=== PATIENT | female | born 1980 | race Hispanic/Latino ===

== ENCOUNTER 2016-11-03 06:22 | Emergency (ER) | payer OTHER ==
[~2016-11-03] VITALS: Ht 160 cm; Wt 90.9 kg
[~2016-11-03 06:22] MED LIST: CITA40TA13 PO; DOXY100T2 PO; FLUT16SP; GABA-502; HYDR50CA PO; METO-301 PO; NAPR500T PO; OMEP20CA11; OXYB5TAB10; PROP10TA8; RANI150T11; TOPI-59
--- NOTE | 2016-11-03 06:30 | ED.REPORT ---
HPI-Back Pain Under 40 Date of Service Nov 03, 2016 ED Provider: Jolanta Caruso MD 36 year old female presents to the ER complaining of acute on chronic low back pain, worsening yesterday. She reports history of similar elicitation of pain with over-exertion. Pain is exacerbated with movement of any kind. Patient denies dysuria, and history of narcotic and IV drug abuse. Symptoms have not been treated with any home medications. In the past she has treated these symptoms with THC with no relief. Nursing Notes Stated Complaint: BACK PAIN Nursing Notes Reviewed: Yes Allergies: Coded Allergies: hydrocodone (Unverified Adverse Reaction, Severe, Nausea, 02/24/16) Scheduled Citalopram (Citalopram) 40 Mg Tablet 40 MG PO DAILY Dexamethasone (Dexamethasone) 4 Mg Tablet 10 MG PO DAILY 10mg on 11/04 and 11/05 Doxycycline Hyclate (Doxycycline Hyclate) 100 Mg Tablet 100 MG PO BID Scheduled PRN Hydroxyzine Pamoate (Vistaril) 50 Mg Capsule 50 MG PO HS PRN PRN For Insomnia Metoclopramide (Reglan) 10 Mg Tablet 10 MG PO TID PRN PRN Headache Naproxen (Naprosyn) 500 Mg Tablet 500 MG PO BID PRN PRN For Pain Naproxen (Naproxen) 500 Mg Tab 500 MG PO BID PRN PRN For Pain oxyCODONE-Acetaminophen 5-325 mg (oxyCODONE-Acetaminophen 5-325 mg) 1 Each Tablet 1-2 TAB PO Q6H PRN PRN For Pain Miscellaneous Medications Fluticasone Propionate (Fluticasone Propionate Nasal) [address] [place].susp Gabapentin (Gabapentin) 300 Mg Capsule Omeprazole (Omeprazole) 20 Mg Capsule. Oxybutynin Chloride (Oxybutynin Chloride) 5 Mg Tablet Propranolol HCl (Propranolol HCl) 10 Mg Tablet Ranitidine (Zantac) 150 Mg Tablet Topiramate (Topiramate) 25 Mg Tablet General Time Seen by MD: 06:29 Chief Complaint Back pain Hx Obtained From: Patient Arrived By: Walk-in Sudden in Onset?: No Onset Occurred: Yesterday Symptom Duration: Since onset Caused by: Spontaneous/no mechanism, Aggravated old injury Location: : Spinal lumbar area: Spinal sacral area: Spinal thoracic area Quality: Painful Severity: Current: Moderate Severity: Maximum: Moderate Associated with: Denies: Dysuria Pertinent Negative: Pt denies other symptoms Related History: Reports: Chronic back pain Similar Sx Previous: Yes Past Medical History Past Medical History Notes: Neurologist: Dr. Turcios Past Medical History Chronic back problems Migraine headaches Anxiety Reports: GERD, Mental illness Past Surgical History Reports: Tubal ligation Smoking History Current Some Day Smoker Social History Alcohol Use: Denies alcohol use Drug Use: THC Occupation lives with kids 6, from 16,14, 13,10 ,9, 8, Ambulatory Status Independent Review of Systems GI: Denies: Abdominal pain, Nausea, Vomiting Female: Denies: Musculoskeletal: Reports: Back pain, Lumbar pain, Denies: Extremity pain, Joint pain, Neck pain, Thoracic pain Complete sys rev & neg: except as marked. Physical Exam Initial Vital Signs Vital Signs (First) Date Time Temp Pulse Resp B/P Pulse Ox O2 Delivery O2 Flow Rate FiO2 11/03/16 06:33 36.2 90 22 106/66 97 Room Air Initial VS: Reviewed Head / Eyes: Atraumatic, Normocephalic Neck: Supple, Non-tender, Full range of motion Abdomen / GI: Soft, Non-tender, No guarding, No rebound, No distention Extremities: Vascular intact, Neuro intact, No swelling, No tenderness Skin: Warm, Dry, No cyanosis General/Constitutional: Awake, Alert, Well developed, Well nourished Distress / Hydration: Positive: Distress moderate Behavior: Positive: Tearful Appearance / Presentation: Positive: In pain, Uncomfortable Back: Atraumatic, No CVA tenderness Points to midline tenderness from sacrum to T8. Radicular pain on Right side into the thigh and hamstring. Significant paraspinal muscle spasm, bilaterally. Neurologic: Oriented X3, Speech NL, No motor deficits Psychiatric: Not suicidal, Not homicidal Dramatic affective behavior. Breathing through pain as though she is having contractions, though confirms that she has a tubal ligation. Re-Eval/Medical Decision Re-Evaluation/Progress #1: Time of Eval: 07:16 Re-Evaluation/Progress Note: She states that the pain is not improved after IM Toradol. However she is less dramatic, now appropriate. Visibly in pain, cryinig and quivering. Now able to walk. Re-Evaluation/Progress #2: Time of Eval: 08:29 Re-Evaluation/Progress Note: Discussed physical examination findings and plan to discharge. Patient is amenable to the plan. Return precautions given. All other questions addressed. Counseled Regarding: Diagnosis, Lab results, Need for follow-up, When/why to return to ED Discharge & Departure Impression: Primary Impression: Acute radicular low back pain Disposition: Home All VS Reviewed: Yes Condition: Stable Patient Instructions: Lumbar Radiculopathy (ED) Additional Instructions: I believe your pain is related to spasms of the muscles in your back. I have prescribed you a 3-day course of steroids. You got the first dose in the ER, you will need 10mg of decadron on 11/04 and 11/05. Use Valium, 5mg every 8 hours for acute spasm. for the pain, please use Naprosyn daily for the next week. Take 1 in the morning and 1 at night to control your pain. Do not take ibuprofen while taking Naprosyn. After the first week, you can choose weather you need the Naprosyn or not. For severe pain not controlled with naprosen, Take 1-[address] or consume alcohol while taking narcotic pain medications. Do not take Tylenol while taking this medication. It can cause constipation so use lots of water and extra fiber. Percoset has tylenol in it, so don't use additional tylenol. Apply ice packs. Schedule an appointment with Dr. Oropeza for next week. Return to the ER if you develop uncontrollable pain, numbness/tingling/weakness , bowel/urinary incontinence, or any other concerning symptoms. Referrals: Travis Oropeza MD (PCP) [place] Attestation Portions of this note were transcribed by Maren Moses. I, Dr. Caruso, personally performed the history, physical exam and medical decision-making; I reviewed and confirmed the accuracy of the information in the transcribed note. Signed by: Jt Clancy, 11/03/2016 and 09:23 copies to: Travis Oropeza MD, Shawna L MD Nov 03, 2016 06:30 MAREN MOSES Nov 03, 2016 06:31
[2016-11-03 06:33] VITALS: BP 106/66; PULSE 90; RESP 22; O2SAT 97
[2016-11-03] MEDS ORDERED: Ketorolac 30 mg/mL 2 mL Inj IM ONE (06:40)
[2016-11-03] MEDS ORDERED: oxyCODONE-Acetamin 5-325 mg Tablet PO ONE (07:25)
[2016-11-03 08:34] VITALS: BP 104/80; PULSE 86; RESP 20; O2SAT 99
[2016-11-03] MEDS ORDERED: DXM4T PO (09:24)
[2016-11-03] MEDS ORDERED: OXYC1TAB24 PO (09:24)
[2016-11-03] MEDS ORDERED: NPR500T PO (09:24)
[2016-11-03 09:42] VITALS: BP 104/70; PULSE 75; RESP 22; O2SAT 97
== END 2016-11-03 09:24 | disposition home or self-care (01) ==
LOC: SED 06:22
DX: M54.16 Radiculopathy, lumbar region (principal); K21.9 Gastro-esophageal reflux disease without esophagitis; F17.200 Nicotine dependence, unspecified, uncomplicated; Z88.5 Allergy status to narcotic agent
CPT/HCPCS: 96372; 99283; J1885